=== PATIENT | female | born 1965 | race Caucasian/White ===

== ENCOUNTER 2017-06-21 13:28 | Emergency (ER) | payer MEDICAID ==
[2017-06-21] MEDS ORDERED: Sodium Chloride 0.9% 1,000 ML IV STA ×2 (13:54→16:23)
[2017-06-21] MEDS ORDERED: Sodium Chloride 0.9% 1,000 ML ONE ×2 (14:10→16:27)
[2017-06-21 14:32] LABS: EOS % 0.2 % (0.0-4.0); HEMATOCRIT 45.2 % (34.0-47.0); LYMPH # 0.6 K/uL (1.0-4.3); LYMPH % 4.9 % (20.0-40.0); MEAN CELL VOLUME 88.2 fL (81.0-99.0); MEAN CORPUSCULAR HEMOGLOBIN 29.1 pg (27.0-31.0); MEAN PLATELET VOLUME 8.1 fL (7.2-11.7); MONO # 0.3 K/uL (0.0-0.8); PLATELET COUNT 272 K/uL (130-400); RED CELL DISTRIBUTION WIDTH 17.3 % (11.5-14.5); WHITE BLOOD COUNT 12.8 K/uL (4.8-10.8)
--- NOTE | 2017-06-21 14:38 | RAD ---
PROCEDURE: Radiographs of the chest and abdomen (obstructive series) HISTORY: abd pain, vomiting, s/p hysterectomy few months ag COMPARISON: No prior. TECHNIQUE: AP radiograph of the chest, with upright and supine radiographs of the abdomen. FINDINGS: CHEST: Lungs: Clear. Cardiovascular: Normal size heart. No pulmonary vascular congestion. Pleura: No pleural fluid. No pneumothorax. Other findings: None. ABDOMEN AND PELVIS: Bowel: Unremarkable bowel gas pattern. No evidence of mechanical obstruction. Free air: None. Bones: Unremarkable. Other findings: None. IMPRESSION: Unremarkable radiographs of chest and abdomen. No evidence of mechanical bowel obstruction.
[2017-06-21 14:41] LABS: CHLORIDE 104 mmol/L (98-107); POTASSIUM 3.5 mmol/L (3.6-5.2); SODIUM 143 mmol/L (132-148)
[2017-06-21 14:43] LABS: ALB/GLOB RATIO 1.3 (1.0-2.1); AST/SGOT 18 U/L (14-36); BILIRUBIN,TOTAL 0.7 mg/dL (0.2-1.3); CARBON DIOXIDE 22 mmol/L (22-30); GFR AFRICAN-AMERICAN > 60; TOTAL PROTEIN 8.3 g/dL (6.3-8.3)
[2017-06-21 14:44] LABS: ALKALINE PHOSPHATASE 52 U/L (38-126); ALT/SGPT 23 U/L (9-52); BLOOD UREA NITROGEN 15 mg/dL (7-17); CALCIUM 9.7 mg/dl (8.6-10.4); GLUCOSE,RANDOM 116 mg/dL (65-105)
[2017-06-21 14:52] LABS: NEUTROPHIL 81 % (50-75); REACTIVE LYMPHOCYTES 1 % (0-0); TOTAL CELLS COUNTED 100
--- NOTE | 2017-06-21 15:15 | C.PDOC ---
History Of Present Illness 52 y/o female presents to emergency department with complaint of vomiting and abdominal pain for 3 hours. Patient reports symptoms started after making a drink of "Yuca" and drinking it. Otherwise, denies fever, chills, diarrhea, urinary symptoms, or other associated symptoms. Time Seen by Provider: 06/21/17 13:42 Chief Complaint (Nursing): Abdominal Pain History Per: Patient History/Exam Limitations: no limitations Onset/Duration Of Symptoms: Hrs (3) Current Symptoms Are (Timing): Still Present Location Of Pain/Discomfort: Epigastric Radiation Of Pain To:: None Quality Of Discomfort: "Pain" Associated Symptoms: Vomiting. denies: Fever, Chills, Diarrhea, Urinary Symptoms Recent travel outside of the [place]: No Abnormal Vaginal Bleeding: No Past Medical History Reviewed: Historical Data, Nursing Documentation, Vital Signs Vital Signs: Last Vital Signs Temp 98.5 F 06/21/17 18:42 Pulse 90 06/21/17 18:42 Resp 18 06/21/17 18:42 BP 132/68 06/21/17 18:42 Pulse Ox 99 06/21/17 18:42 - Medical History PMH: No Chronic Diseases Family History: States: Unknown Family Hx - Social History Hx Alcohol Use: Yes Hx Substance Use: No - Immunization History Hx Tetanus Toxoid Vaccination: Yes Hx Influenza Vaccination: No Hx Pneumococcal Vaccination: No Review Of Systems Except As Marked, All Systems Reviewed And Found Negative. Constitutional: Negative for: Fever, Chills Cardiovascular: Negative for: Chest Pain Respiratory: Negative for: Cough, Shortness of Breath, Wheezing Gastrointestinal: Positive for: Vomiting, Abdominal Pain. Negative for: Diarrhea Genitourinary: Negative for: Dysuria Skin: Negative for: Rash Neurological: Negative for: Headache, Dizziness Physical Exam - Physical Exam Appears: Non-toxic, No Acute Distress, Other (actively vomiting) Skin: Normal Color, Warm, Dry Head: Atraumatic, Normacephalic Oral Mucosa: Moist Throat: Normal, No Erythema, No Exudate Neck: Supple Chest: Symmetrical Cardiovascular: Rhythm Regular Respiratory: Normal Breath Sounds, No Rales, No Rhonchi, No Wheezing Gastrointestinal/Abdominal: Soft, Tenderness (epigastric), No Guarding, No Rebound Back: Normal Inspection Extremity: Normal ROM, Capillary Refill (< 2 sec.) Neurological/Psych: Oriented x3, Normal Speech, Normal Cognition ED Course And Treatment - Laboratory Results Result Diagrams: 06/21/17 14:27 06/21/17 14:27 O2 Sat by Pulse Oximetry: 96 (room air ) Pulse Ox Interpretation: Normal - CT Scan/US Obstructive Series Other Rad Studies (CT/US): Read By Radiologist, Radiology Report Reviewed CT/US Interpretation: FINDINGS: LIVER: Measures 15.1 cm in length. Normal echogenicity of the liver parenchyma. No mass. No intrahepatic bile duct dilatation. GALLBLADDER: Unremarkable. No gallstones. No sonographic Mccoy sign elicited. COMMON BILE DUCT: Measures 4.9 mm. No stones. No dilatation. PANCREAS: Unremarkable as visualized. No mass. No ductal dilatation. RIGHT KIDNEY: Measures 11.6 x 3.2 x 4.1 cm in length. A 5 mm echogenic focus is seen in the lower pole right renal parenchyma separate from the calices potentially reflecting in a benign angiomyolipoma. No shadowing seen related to this structure and is not felt to represent parenchymal calcification. No calculus or hydronephrosis. AORTA: No aneurysmal dilatation. IVC: Unremarkable. OTHER FINDINGS: None . IMPRESSION: 1. Nonacute appearing right upper quadrant abdomen ultrasound examination. 2. Probable 5 mm angiomyolipoma lower pole right kidney. 3. The remainder of the examination appears unremarkable. US RUQ Other Rad Studies (CT/US): Read By Radiologist, Radiology Report Reviewed CT/US Interpretation: Accession No. : [id number]. Patient Name / ID : JCARLOS COLLINS / [id number]. Exam Date : 06/21/2017 16:50:49 ( Approved ). Study Comment : Sex / Age : F / 52Y. Creator : Kirk Sharpe MD. Dictator : Kirk Sharpe MD. 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 Approver2 : Report Date : 06/21/2017 17:31:36. My Comment : . HISTORY: RUQ pain/vomiting. COMPARISON: None. TECHNIQUE: Sonographic evaluation of the right upper quadrant of the abdomen. FINDINGS: LIVER: Measures 15.1 cm in length. Normal echogenicity of the liver parenchyma. No mass. No intrahepatic bile duct dilatation. GALLBLADDER: Unremarkable. No gallstones. No sonographic Mccoy sign elicited. COMMON BILE DUCT: Measures 4.9 mm. No stones. No dilatation. PANCREAS: Unremarkable as visualized. No mass. No ductal dilatation. RIGHT KIDNEY: Measures 11.6 x 3.2 x 4.1 cm in length. A 5 mm echogenic focus is seen in the lower pole right renal parenchyma separate from the calices potentially reflecting in a benign angiomyolipoma. No shadowing seen related to this structure and is not felt to represent parenchymal calcification. No calculus or hydronephrosis. AORTA: No aneurysmal dilatation. IVC: Unremarkable. OTHER FINDINGS: None . IMPRESSION : 1. Nonacute appearing right upper quadrant abdomen ultrasound examination. 2. Probable 5 mm angiomyolipoma lower pole right kidney. 3. The remainder of the examination appears unremarkable. Progress Note: Labs, blood work, and obstructive series was ordered. Fluids and Zofran given. Patient continues vomiting. Given Reglan. on re-eval, patient with mild tenderness RUQ. Ultrasound ordered and negative. Patient feels better and is stable to be d/c home with PMD follow up. Disposition - Disposition Referrals: Jade Boss [Medical Doctor] - Disposition: HOME/ ROUTINE Disposition Time: 18:27 Condition: STABLE Additional Instructions: Follow up with your PMD within 1-2 days. Return to Ed if immediately if feel worse. Prescriptions: Dicyclomine [Bentyl] 20 mg PO TID #30 tab Famotidine [Pepcid] 20 mg PO BID #20 tab Ondansetron [Zofran Odt] 1 - 2 tab PO .Q4-6H PRN #20 odt PRN Reason: Nausea/Vomiting Instructions: Food Poisoning (ED) Forms: [facility] (Slovenian), Work Excuse - Clinical Impression Clinical Impression: Food poisoning - PA / INTELLIGENCE SENIOR SERGEANT / Resident Statement MD/DO has reviewed & agrees with the documentation as recorded. - Scribe Statement The provider has reviewed the documentation as recorded by the Scribe Saloni Morley All medical record entries made by the Scribe were at my direction and personally dictated by me. I have reviewed the chart and agree that the record accurately reflects my personal performance of the history, physical exam, medical decision making, and the department course for this patient. I have also personally directed, reviewed, and agree with the discharge instructions and disposition.
[2017-06-21 16:14] LABS: RBC URINE 13 /hpf (0-3); URINE BILIRUBIN NEGATIVE (NEGATIVE); URINE BLOOD 1+ (NEGATIVE); URINE COLOR Yellow (YELLOW); URINE GLUCOSE (UA) NORMAL (Normal); URINE KETONE 1+ mg/dL (NEGATIVE); URINE LEUKOCYTE ESTERASE NEG Leu/uL (Negative); URINE PROTEIN NEGATIVE (NEGATIVE); URINE UROBILINOGEN NORMAL mg/dL (0.2-1.0)
[2017-06-21 16:15] LABS: URINE BACTERIA RARE (<OCC); WBC URINE 1 /hpf (0-5)
--- NOTE | 2017-06-21 17:33 | US ---
HISTORY: RUQ pain/vomiting COMPARISON: None. TECHNIQUE: Sonographic evaluation of the right upper quadrant of the abdomen. FINDINGS: LIVER: Measures 15.1 cm in length. Normal echogenicity of the liver parenchyma. No mass. No intrahepatic bile duct dilatation. GALLBLADDER: Unremarkable. No gallstones. No sonographic Mccoy sign elicited. COMMON BILE DUCT: Measures 4.9 mm. No stones. No dilatation. PANCREAS: Unremarkable as visualized. No mass. No ductal dilatation. RIGHT KIDNEY: Measures 11.6 x 3.2 x 4.1 cm in length. A 5 mm echogenic focus is seen in the lower pole right renal parenchyma separate from the calices potentially reflecting in a benign angiomyolipoma. No shadowing seen related to this structure and is not felt to represent parenchymal calcification. No calculus or hydronephrosis. AORTA: No aneurysmal dilatation. IVC: Unremarkable. OTHER FINDINGS: None . IMPRESSION: 1. Nonacute appearing right upper quadrant abdomen ultrasound examination. 2. Probable 5 mm angiomyolipoma lower pole right kidney. 3. The remainder of the examination appears unremarkable.
[2017-06-21 18:43] VITALS: BP 132/68; PULSE 90; RESP 18; TEMP 98.5
[2017-06-21 18:59] VITALS: O2SAT 96
== END 2017-06-21 18:53 | disposition home or self-care (01) ==
LOC: C.ER 13:28
DX: T62.8X1A Toxic effect of other specified noxious substances eaten as food, accidental (unintentional), initial encounter (principal); R11.10 Vomiting, unspecified; R10.9 Unspecified abdominal pain
CPT/HCPCS: 74022; 76705; 80053; 81001; 83690; 85025; 96361; 96374; 96375; 99285; C9113; J2405; J2765; J7040